=== PATIENT | male | born 1970 | race Caucasian/White ===

== ENCOUNTER 2023-07-16 17:41 | Emergency (ER) | payer SELFPAY ==
[~2023-07-16] VITALS: Ht 162.6 cm; Wt 72.6 kg
[2023-07-16] MEDS ORDERED: PANTOPRAZOLE 40 MG INJ VIAL ONE (18:04)
[2023-07-16 18:13] VITALS: PULSE 68; RESP 22; TEMP 97.6; O2SAT 100
[2023-07-16 18:21] VITALS: BP 188/74; PULSE 55; RESP 20
[2023-07-16 18:22] VITALS: O2SAT 100
[2023-07-16] MEDS: NACL 0.9% 1,000 ML IV ONE ×2 (18:57→20:01)
[2023-07-16 19:02] LABS: BASOPHILS # (AUTO) 0.1 K/uL (0.00-0.22); BASOPHILS % (AUTO) 0.4 % (0.0-2.0); HEMATOCRIT 44.3 % (36-52); HEMOGLOBIN 15.2 g/dL (12.0-18.0); LYMPHOCYTES # (AUTO) 1.8 K/uL (2.0-11.5); LYMPHOCYTES % (AUTO) 12.6 % (20.5-51.1); MEAN CORPUSCULAR HEMOGLOBIN 30 pg (27-31); MEAN CORPUSCULAR HGB CONC 34 g/dL (33-37); MEAN CORPUSCULAR VOLUME 87.1 fL (80-94); MONOCYTES # (AUTO) 0.4 K/uL (0.8-1.0); MONOCYTES % (AUTO) 2.6 % (1.7-9.3); NEUTROPHILS % (AUTO) 84.4 % (42.2-75.2); PLATELET COUNT (AUTO) 292 K/uL (140-450); RED BLOOD CELL COUNT(AUTO) 5.08 MIL/uL (4.20-6.10); RED CELL DISTRIBUTION WIDTH 13.8 % (11.6-13.7); WHITE BLOOD COUNT (AUTO) 14.3 K/uL (4.8-10.8)
[2023-07-16 19:14] LABS: ANION GAP 16.3 (8-16); CALCIUM 9.6 mg/dL (8.5-10.1); CARBON DIOXIDE 23.7 mmol/L (21-32)
[2023-07-16 19:21] LABS: ALBUMIN 3.9 g/dL (3.4-5.0); BILIRUBIN,DIRECT 0.1 mg/dL (0.0-0.3); TOTAL BILIRUBIN 0.5 mg/dL (0.0-1.0); TOTAL PROTEIN, SERUM 9.2 g/dL (6.4-8.2)
[2023-07-16] MEDS: ONDANSETRON 4 MG/2 ML VIAL IVP ONE ×2 (19:58→21:20)
[2023-07-16] MEDS: KETOROLAC 30 MG/ML VIAL IVP ONE (19:59)
[2023-07-16 20:10] LABS: APPEARANCE,URINE CLEAR (CLEAR); BILIRUBIN,URINE NEGATIVE (NEGATIVE); BLOOD, URINE NEGATIVE (NEGATIVE); COLOR,URINE YELLOW (YELLOW); LEUKOCYTE ESTERASE ,URINE NEGATIVE (NEGATIVE); NITRITE, URINE NEGATIVE (NEGATIVE); PH,URINE 8.5 (5.0-9.0); PROTEIN,URINE TRACE (NEGATIVE); UGLUCOSE TRACE (NEGATIVE); UROBILINOGEN,URINE 0.2 EU/dL (0.2 - 1)
[2023-07-16 20:23] LABS: AMPHETAMINE, URINE NEGATIVE ng/ml (NEG <=1000); BARBITURATE, URINE NEGATIVE ng/ml (NEG <=200); BENZODIAZEPINE, URINE NEGATIVE ng/mL (NEG <=200); CANNABINOID, URINE POSITIVE ng/mL (NEG <=50); COCAINE, URINE NEGATIVE ng/mL (NEG <=300); OPIATE, URINE NEGATIVE ng/mL (NEG <=2000); PHENCYCLIDINE SCREEN,URINE NEGATIVE ng/mL (NEG <=25)
[2023-07-16] MEDS ORDERED: METR-435 PO (20:55)
[2023-07-16] MEDS ORDERED: CIPR500T4 PO (20:55)
[2023-07-16] MEDS ORDERED: ONDA-188 SL (20:55)
[2023-07-16] MEDS: ACETAMINOPHEN EXTRA STRENGTH 500 MG TAB PO ONE (21:53)
== END 2023-07-16 22:29 | disposition home or self-care (01) ==
LOC: MED 17:41
DX: K52.9 Noninfective gastroenteritis and colitis, unspecified (principal); Z79.899 Other long term (current) drug therapy; Z79.2 Long term (current) use of antibiotics
CPT/HCPCS: 36415; 74176; 80048; 80076; 80305; 81003; 82150; 83690; 83880; 84484; 85025; 93005; 96361; 96374; 96375; 96376; 99285; C9113; J1885; J2405; J7030